=== PATIENT | male | born 1985 | race African-American/Black ===

== ENCOUNTER 2018-06-07 22:53 | Emergency (ER) | payer MEDICAID ==
[~2018-06-07] VITALS: Ht 180.3 cm; Wt 90.7 kg
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
[2018-06-08 01:09] VITALS: BP 126/87
[2018-06-08] MEDS ORDERED: HYDROCODON-ACE1 EA15 ORAL (01:11)
[2018-06-08] MEDS ORDERED: IBUPROFEN600 MG ORAL (01:11)
[2018-06-08 01:40] VITALS: BP 126/87
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
== END 2018-06-08 01:41 | disposition home or self-care (01) ==
LOC: EMR 23:22
DX: S52.124A Nondisplaced fracture of head of right radius, initial encounter for closed fracture (principal); S09.90XA Unspecified injury of head, initial encounter; S43.102A Unspecified dislocation of left acromioclavicular joint, initial encounter; S93.402A Sprain of unspecified ligament of left ankle, initial encounter; S63.501A Unspecified sprain of right wrist, initial encounter; Z91.041 Radiographic dye allergy status; V18.4XXA Pedal cycle driver injured in noncollision transport accident in traffic accident, initial encounter; Y93.55 Activity, bike riding; Y92.9 Unspecified place or not applicable
CPT/HCPCS: 29105; 70450; 99284